=== PATIENT | female | born 1990 | race Caucasian/White ===

== ENCOUNTER 2023-01-02 15:28 | Inpatient (IN) | payer OTHER, MEDICAID, SELFPAY ==
[2023-01-02 15:40] VITALS: BP 128/77; PULSE 72; RESP 18; TEMP 36.6; O2SAT 98
[2023-01-02 15:43] VITALS: BMI 39.7
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
[2023-01-02] MEDS: PARoxetine 20 mg Tablet 30 MG PO (20:20)
[2023-01-02] MEDS: zolpidem 5 mg Tablet PO (20:20)
[2023-01-02] MEDS: acetaminophen 325 mg Tablet 650 MG PO (21:45)
[2023-01-02 22:00] VITALS: RESP 16
[2023-01-03 06:00] VITALS: RESP 15
[2023-01-03] MEDS: pantoprazole DR 40 mg Tablet PO (08:47)
[2023-01-03] MEDS: buPROPion XL (24 HR) 300 mg Tablet PO (08:48)
[2023-01-03] MEDS: acetaminophen 325 mg Tablet 650 MG PO (11:41)
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
[2023-01-03 14:00] VITALS: BP 109/76; PULSE 90; RESP 18; TEMP 36.8; O2SAT 97
--- NOTE | 2023-01-03 14:03 | P.NPUPN_ITS ---
Subjective NPU Subjective: 32-year-old white female with an extended history of depression and generalized anxiety disorder admitted with vague suicidal ideation and worsening depression. Patient had reported continued depression and stated that she had indeed felt overwhelmed as she had reported continued stressors at home and at work. Patient had reported having depressed mood for years with some improvement noted for periods of time. She had reported continued low energy. Staff notes the patient was pleasant and spent much of the day in her room. She had reported adequate appetite. She denied any suicidal ideation at this time. She had reported that she frequently keeps a gun at her room that is loaded with no intent to shoot herself or others. Mental Status Exam MSE Comments: Patient is a casually dressed white female who appeared her stated age with no evidence of any psychomotor agitation but continued evidence of mild psychomotor retardation. Her mood was described as depressed. Her affect was restricted in range and mood-congruent. She denied any homicidal or suicidal ideation today. There was no clear evidence of delusional thinking. She did not appear to be responding to internal stimuli. Her speech was normal in regards to rate rhythm and prosody. Her attention span appeared fair. She denied any auditory or visual hallucinations. Her insight was poor. Her impulse control appeared poor. Her judgment was poor as well. Her recent and remote memory were grossly intact. She was alert and oriented to person place and time. Vitals/I&O/Wt Last Vital Signs Temp 98 F 01/02/23 15:40 Pulse 72 01/02/23 15:40 Resp 15 01/03/23 06:00 BP 128/77 01/02/23 15:40 Pulse Ox 98 01/02/23 15:40 O2 Del Method Room Air 01/02/23 15:43 Weight last 48 hrs Weight 108.409 kg Weight 108.86 kg A&P Assessment and plan (1) Major depressive disorder, recurrent: (2) Generalized anxiety disorder: Plan This is a 32-year-old white female with generalized anxiety disorder major depressive disorder with recent gastric sleeve surgery admitted for some concerns over a suicidal threat with the plan to utilize a loaded gun with recent break-up with a boyfriend. Patient appears to have significant work- related stressors to and reports significant emotional distress and continued depression. Patient would benefit from continued hospitalization at this time. 1.? ? Engage? patient in individual ,milieu, and group therapy. Continue Wellbutrin, phentermine, Ambien, and Paxil at 30 mg at night. ?2. ? Discussed with patient alternative treatments for depression with better efficacy including Spravato and transcranial magnetic stimulation. ?3. ? TO-15 minute checks on the unit. ?4.? Recommend sober living treatment at the highest level of care to which the patient is willing to commit. Involuntary Hold Information 96 Hour Hold: 96 Hour Involuntary Admission: No Attestations NPU Medical Necessity Statement*: Inpatient hospitalization is medically necessary and deemed to be the clinically appropriate intervention at this time. We will monitor initiate medications while making changes as indicated. Her likely length of stay is 3 to 4 days. Coding Level of Care Code Acute Code for g Fwd Diagnoses Major depressive disorder, recurrent F33.9 Generalized anxiety disorder F41.1
[2023-01-03] MEDS: LORazepam 0.5 mg Tablet PO (15:15)
--- NOTE | 2023-01-03 15:15 | PC.NURSE ---
pt requested staff to make sure her money was secure since when she was admited she had recently been paid from her employer. pt stated having $3,600.oo aparicio in wallet. went to security safe and examined the secured money envelope whiched stated there was $66.00 in it. at that time went to explain to patient of what it stated. pt became upset stating what is she going to do. at that time i retrieved all of her personal belongings and money envelope for pt to examine, went to bench by nurses station with pt at that time pt examined wallet and personal belongings. pt found $90.00 aparicio in back zipper of wallet that previously had not been accounted for. money from 1st patient envelope opened in front of client and counted =$66.oo at that time counted the entire amount of aparicio and placed the $90.00 aparicio and the $66.00 aparicio in patient personal security envelope total of $156.00 sealed infront of patient an placed in safe. notified security of pt statement. Security and Occupational Therapy Instructor arrived on unit, explained situation to both of them at this time. both security and cook house supervisor went to patient room and spoke with her. [id number] called [facility]- spoke with aldair in ER explained situation to her, placed on hold while she stated she checked their security area and spoke with nurse who retrieved pt personal belonging from nurses station .she stated that all personal belongings were in a bag and she gave directly to patient upon transfer to our facility aldair also stated that the nurse who admitted patient stated at no time did they open patient wallet and check to see if pt had any money in it they just remove personal belongings and place them in bag an place at nurses desk. Security is to look over our security video.
[2023-01-03] MEDS: PARoxetine 20 mg Tablet 30 MG PO (20:36)
[2023-01-03 20:37] VITALS: BP 110/64; PULSE 82; RESP 16; TEMP 36.8; O2SAT 98
[2023-01-03] MEDS: zolpidem 5 mg Tablet PO (20:37)
[2023-01-04] MEDS: buPROPion XL (24 HR) 300 mg Tablet PO (08:47)
[2023-01-04] MEDS: pantoprazole DR 40 mg Tablet PO (08:47)
--- NOTE | 2023-01-04 10:30 | PC.NURSE ---
attended morning group @ 1039
[2023-01-04 14:00] VITALS: BP 124/82; PULSE 85; RESP 16; TEMP 36.8; O2SAT 100
--- NOTE | 2023-01-04 16:32 | P.NPUPN_ITS ---
Subjective NPU Subjective: 32-year-old white female with an extended history of depression and generalized anxiety disorder admitted with vague suicidal ideation and worsening depression. The patient reported no side effects from her Paxil increase. She had reported some difficulties with weight gain despite having the gastric sleeve surgery. She had reported that she had not been compliant as well and she would like to be with her vitamins and supplements that largely led to vitamin deficiencies frequently seen in others with gastric bypass. She had reported having struggles with low energy despite having adequate motivation. She had also reported having file and difficult to deal with relaxing with significant stress with patient having worked close to 90 hours/week. She had reported a lack of social supports and often feeling overwhelmed had been adding to her stressors. She had reported that she was not feeling suicidal at this time. She reports that she had spoken with her sister and stated that she had had a good conversation. Mental Status Exam MSE Comments: Patient is a casually dressed white female who appeared her stated age with no evidence of any psychomotor agitation but continued evidence of mild psychomotor retardation. Her mood was described as a little better. Her affect was restricted in range and mood incongruent. She denied any homicidal or suicidal ideation today. There was no clear evidence of delusional thinking. She did not appear to be responding to internal stimuli. Her speech was normal in regards to rate rhythm and prosody. Her attention span appeared fair. She denied any auditory or visual hallucinations. Her insight was poor. Her impulse control appeared improved. Her judgment was improving 2. Her recent and remote memory were grossly intact. She was alert and oriented to person place and time. Vitals/I&O/Wt Last Vital Signs Temp 98.3 F 01/04/23 14:00 Pulse 85 01/04/23 14:00 Resp 16 01/04/23 14:00 BP 124/82 01/04/23 14:00 Pulse Ox 100 01/04/23 14:00 O2 Del Method Room Air 01/04/23 14:00 Weight last 48 hrs Weight 109.769 kg A&P Assessment and plan (1) Major depressive disorder, recurrent: (2) Generalized anxiety disorder: Plan This is a 32-year-old white female with generalized anxiety disorder major depressive disorder with recent gastric sleeve surgery admitted for some concerns over a suicidal threat with the plan to utilize a loaded gun with recent break-up with a boyfriend. Patient appears to have significant work- related stressors to and reports significant emotional distress and continued depression. Patient would benefit from continued hospitalization at this time. 1.? ? Engage? patient in individual ,milieu, and group therapy. Continue Wellbutrin 300mg as prescribed, phentermine, Ambien 5mg daily, and increase Paxil to 40mg at night. ?2. ? Discussed with patient alternative treatments for depression with better efficacy including Spravato and transcranial magnetic stimulation. ?3. ? TO-15 minute checks on the unit. ?4.? Recommend sober living treatment at the highest level of care to which the patient is willing to commit. Involuntary Hold Information 96 Hour Hold: 96 Hour Involuntary Admission: No Attestations NPU Medical Necessity Statement*: Inpatient hospitalization is medically necessary and deemed to be the clinically appropriate intervention at this time. We will monitor initiate medications while making changes as indicated. Her likely length of stay is 2-3 days. Coding Level of Care Code Acute Code for [facility] Fwd Diagnoses Major depressive disorder, recurrent F33.9 Generalized anxiety disorder F41.1
[2023-01-04 19:52] VITALS: BP 113/77; PULSE 78; RESP 108; TEMP 36.7; O2SAT 96
[2023-01-04] MEDS: zolpidem 5 mg Tablet PO (20:33)
[2023-01-04] MEDS: PARoxetine 20 mg Tablet 40 MG PO (20:33)
[2023-01-04] MEDS: LORazepam 0.5 mg Tablet PO (21:58)
[2023-01-05] MEDS: hyDROXYzine 25 mg Capsule 50 MG PO (02:49)
[2023-01-05 06:31] VITALS: RESP 16
--- NOTE | 2023-01-05 06:31 | PC.NURSE ---
resp 16 pt sleeping
[2023-01-05] MEDS: pantoprazole DR 40 mg Tablet PO (08:42)
[2023-01-05] MEDS: buPROPion XL (24 HR) 300 mg Tablet PO (08:42)
[2023-01-05 14:00] VITALS: BP 108/76; PULSE 86; RESP 18; TEMP 36.5; O2SAT 98
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
[2023-01-05 14:50] VITALS: RESP 16
== END 2023-01-05 15:25 | disposition home or self-care (01) | DRG 885 ==
PROVIDERS: Admitting Provider Psychiatry & Neurology Psychiatry; Visit Provider Psychiatry & Neurology Psychiatry
DX: F33.9 Major depressive disorder, recurrent, unspecified (principal); R45.851 Suicidal ideations; F41.9 Anxiety disorder, unspecified; Z98.84 Bariatric surgery status
CPT/HCPCS: 97150; 97165; 99238